=== PATIENT | female | born 1990 | race Caucasian/White ===

== ENCOUNTER 2017-01-01 05:41 | Inpatient (IN) | payer MEDICAID ==
[2017-01-01] VITALS (14 sets, daily range): BP systolic 100–120; BP diastolic 55–76; Ht 149.9 cm; Wt 77.3 kg
[~2017-01-01] VITALS: Ht 149.9 cm; Wt 77.3 kg
[2017-01-01] MEDS ORDERED: PRENAVITE1 TAB PO (06:11)
[2017-01-01 06:20] LABS: HEMATOCRIT 33.6 % (36.0-48.0); HEMOGLOBIN 11.6 g/dL (12-16); MCH 31.9 pg (26.0-34.0); MCHC 34.5 g/dL (31.0-37.0); MCV 92.3 fL (80.0-100.0); MEAN PLATELET VOLUME 9.9 fL (7.4-10.4); RBC 3.64 10x6/uL (4.00-5.40); WBC 8.6 10x3/uL (4.8-10.8)
[2017-01-01 06:36] LABS: UDS - AMPHET NEGATIVE QUAL (NEGATIVE); UDS - BARB NEGATIVE QUAL (NEGATIVE); UDS - BENZO NEGATIVE QUAL (NEGATIVE); UDS - COCAINE NEGATIVE QUAL (NEGATIVE); UDS - OPIATE NEGATIVE QUAL (NEGATIVE); UDS - PCP NEGATIVE QUAL (NEGATIVE); UDS - THC NEGATIVE QUAL (NEGATIVE)
[2017-01-01 06:46] LABS: APPEARANCE CLOUDY (CLEAR); BILIRUBIN NEGATIVE (NEGATIVE); COLOR YELLOW (YELLOW); GLUCOSE NEGATIVE (NEGATIVE); KETONE NEGATIVE (NEGATIVE); NITRITE NEGATIVE (NEGATIVE); PROTEIN 1+ mg/dL (NEGATIVE); UROBILINOGEN NORMAL (NORMAL); WHITE CELLS - URINE >50 /hpf (0-5)
[2017-01-01 06:47] LABS: EPITHELIAL CELLS OCC /hpf (0-5)
[2017-01-01 06:48] LABS: BACTERIA MANY /hpf (NONE SEEN); MUCUS <1+ /lpf (NONE SEEN); YEAST >1+ WITH HYPHAE /hpf (NONE SEEN)
--- NOTE | 2017-01-01 08:39 | NUR ---
BABY BORN AT 0833. TRANSFERRED TO NURSERY WITH NURSE.
--- NOTE | 2017-01-01 09:32 | NUR ---
HERNANDEZ SECURED TO LEFT THIGH IN RR
--- NOTE | 2017-01-01 09:45 | NUR ---
received pt to labor and delivery post repeat section with dr. castle. pt to room 1278. pt has low transverse incision, dermabond noted, c/d/i. abdomen palpates soft, fundus firm, u/1, small rubra lochia, no clots. ice pack placed over gown to incision. pt's iv to left hand infusing ns with 20 units pitocin, set on pump at 125 ml/hr, no redness or swelling noted to iv site. scd's are on pt, connected to pump. pt denies nausea or sob. pt requests ice chips, served. family called to room. sig other at bedside at this time. sr up x 2, call light and phone within reach.
--- NOTE | 2017-01-01 11:45 | NUR ---
fundus firm, u/1, small rubra lochia, no clots. pt able to fully move and feel both legs. incision remains c/d/i. ice pack remains over gown to incision. lantigua cath continues to drain light yellow urine. pt denies n/v or sob. pt denies other needs. pt repositioned to left tilt with pillows under back for support and comfort. pt is using incentive spirometer well without assistance. coughing and deep breathing exercises done per pt. sr up x 2, call light and phone within reach.
--- NOTE | 2017-01-01 12:58 | OP ---
PATIENT NAME: JOSE M UNDERWOOD MEDICAL RECORD: [id number] :91 LOCATION:[id number] ADMISSION DATE:01/01/17 SURGEON: CARRINGTON SWAIN MD DATE OF OPERATION: 01/01/2017 PREOPERATIVE DIAGNOSES: 1. at 39 weeks' gestation. 2. Prior section. 3. Unwanted fertility. POSTOPERATIVE DIAGNOSES: Mother delivered at 39 weeks and 5 days, repeat low transverse section and unwanted fertility. PROCEDURE: 1. Repeat . 2. tubal ligation using a [place] technique. SURGEON: Carrington Swain MD ANESTHESIOLOGIST: Jeferson Umana MD ANESTHETIC: General. FINDINGS: Unremarkable uterus, tubes and ovaries bilaterally. Viable male , weight 3934 grams, Apgars 7 and 9. SPECIMENS REMOVED: 1. Placenta. 2. Right and left tube. SPECIMEN DISPOSITIONS: 1. Placenta discarded. 2. Right and left tube sent in same container. ESTIMATED BLOOD LOSS: 750 cc. FLUIDS: 2200 lactated Ringer's. URINE OUTPUT: 500 cc of clear urine. COMPLICATIONS: None. DRAINS: Burch to gravity. INDICATIONS: The patient is a 26-year-old multiparous female at term with prior section times 2. The patient has unwanted fertility. She understands the risks and benefits of tubal ligation to include, but not limited to possible failure with increased chance of an ectopic gestation which could be life-threatening event if was to occur. DESCRIPTION OF PROCEDURE: After informed consent was assured, the patient was taken to the operating room where anesthetic was obtained. She was then placed in leftward lateral tilt after being laid back. The patient is now draped. Assessment of the anesthetic was found to be inadequate and the patient undergoes rapid sequence induction for a general anesthetic. Upon release from OPERATIVE REPORT [id number] JOSE M UNDERWOOD anesthesia, an incision was made, carried down to the underlying layer of the fascia, which is open and the opening extended laterally. The abdomen is entered using a Pelosi technique. Bladder blade was inserted. Low transverse hysterotomy was performed and the was delivered onto the abdomen atraumatically. Cord was double clamped and cut and passed to the attendant. The placenta was delivered via Crede maneuver. Uterus exteriorized, cleared of all clot and debris. A segment of cord was for attending nurse to obtain cord blood sample for typing. The hysterotomy was closed in a running locked fashion with chromic stitch. After this was performed, the pelvis was irrigated and irrigant removed. The left tube was elevated and a window developed in the antimesenteric side and 2 plain gut stitches were passed through this opening. These are tied on the proximal and distal end and the intervening segment of tube removed and the ostia cauterized. This was repeated on the contralateral side. Once adequate hemostasis is assured, the uterus is returned to the abdomen. Pelvis again is irrigated and irrigant removed. The hysterotomy was inspected, one small bleeding area is made hemostatic with [id number] stitch. The rectus bellies reapproximated and are inspected and found to be hemostatic. The fascia was closed with 1 looped PDS in a running fashion. After this was secured, plain gut stitch was used to reapproximate the fat layer and then the skin was reapproximated with 4-0 Monocryl on a PS2 needle. Dermabond was applied. Sponge, lap and needle counts correct times 2. The pelvis has been explored and no sponges were retained. TRANSINT:[id number] Voice Confirmation ID: [id number] DOCUMENT ID: [id number] CARRINGTON SWAIN MD at 1258 CC: [id number] DICTATION DATE: 01/01/17919 PEDIATRIC CNS: 01/01/17 1213 ADM IN [facility] [address] [place] [address]
--- NOTE | 2017-01-01 13:00 | NUR ---
to pt's room, fundus firm, u/1, small rubra lochia, no clots expelled. incision remains intact, clean and dry. abdomen continues to palpate soft. pt continues to deny n/v, sob. pt reports pain is "pretty well taken care of with the school lunch manager and toradol". pt asking when she can get up out of bed and start moving around. explained to pt that dr. castle has given the ok for pt to get up out of the bed, and to have her lantigua cath taken out as early as 6 hours post op. pt agrees to this plan of care, states "i really think i might want to get up as early as i can, i'll let you know". pericare given with warm wet washcloths, peripads changed. fresh ice pack placed over gown to incision. pt denies other needs at this time. sr up x 2, call light and phone within reach.
--- NOTE | 2017-01-01 16:00 | NUR ---
to pt's room, pt is sitting up in the bed, is currently . pt states "i think i want to get up a little later and get moving about". hoang, rn nursery nurse changing 's diaper. fundus firm, u/1, small rubra lochia, no clots. lantigua cath continues to drain light yellow urine. pt denies needs needs at this time. pt has eaten regular diet for lunch, and continues to deny nausea/vomiting, bowel sounds active x 4. sr up x2, call light and phone within reach.
--- NOTE | 2017-01-01 17:30 | NUR ---
pt calls out location and measurement technician light and requests to get up out of bed, and to move rooms, pt is requesting a bigger room. fundus firm, u/1, scant rubra lochia, no clots noted. lantigua cath removed with total of 1200 ml's light yellow urine out. iv saline locked, flushed with 10 ml's ns, no redness or swelling noted to iv site. incision remains c/d/i, abdomen remains soft. scd's removed for transport. pt assisted out of bed, pt requests to walk to next room. pt ambulatory, with me at her side, gait steady. pt denies dizziness, n/v, or sob. to #[id number], pt assisted to bed. srup x 2, call light and phone within reach. incentive spirometer on bedside table, with ice pack placed over gown to incision. pt's medication schedule reviewed with pt. pt states she would like to have the toradol only for now, but will let us know if she needs anything else, as any kind of pain pills usually causes her nose to itch. see emar for all meds adm by this rn. sr up x2, call light and phone within reach. pt denies other needs at this time.
--- NOTE | 2017-01-01 18:10 | NUR ---
pt up to br per self.
--- NOTE | 2017-01-01 18:15 | NUR ---
pt reports she voided large amount, but did not catch to measure. [place] hat placed in toilet for measuring next voids. pt agrees. pt back to bed, denies needs. srup x 2, call light and phone within reach.
--- NOTE | 2017-01-01 19:40 | NUR ---
RN TO PT BS FOR JAIME. PT RESTING IN BED IN SEMI-FOWLERS POSTIION, HOLDING . PT IN NO ACUTE DISTRESS. PT IS A 26YO G3 NOW P3 WITH REPEAT C/S AND BTL TODAY @ 0833 OF VIABLE MALE . INFANT @ 38.3 WKS GESTATION. AAOX3. HR REGULAR. LUNGS CTAB. ABDOMEN SOFT AND NON TENDER. BS ACTIVE TIMES 4. FUNDUS NOT PALPATED. LOWER ABDOMINAL INCISION NOTED, DERMABOND IN PLACE. INCISION WELL PROXIMATED WITH NO REDNESS OR DRAINAGE NOTED TO SITE. RODRIGUE PADS AND PANTIES IN PLACE. LOCHIA RUBRA SCANT. PT DENIES DIFFICULTY VOIDING. STATES SHE HAS PASSED GAS BUT HAS NOT HAD A BM SINCE C/S. NO SWELLING NOTED TO UPPER OR LOWER EXTREMITIES BILATERALLY. 18G SL IN PLACE TO LEFT HAND. FLUSHED WITH 5CC NS AT THIS TIME WITHOUT DIFFICULTY. NO REDNESS OR EDEMA NOTED TO SITE. PT TOLERATING REGULAR DIET WITHOUT DIFFICULTY. PT RATES PAIN AT 4/10 AT THIS TIME. PT RECEIVING SCHEDULED IV TORDAL Q6H. PERCOCET ORDERED. PT STATES SHE DOES NOT DESIRE TO RECEIVE PO PERCOCET UNLESS SHE HAS TO HAVE IT. STATES ANY PO PAIN MEDICATION CAUSES HER NOSE TO ITCH. PT INSTRUCTED TO NOTIFY RN IF PO PAIN MEDICATION IS DESIRED. POC DISCUSSED WITH PT AND QUESTIONS ANSWERED. FRESH WATER MUG PROVIDED AT THIS TIME. PT DENIES ANY FURTHER NEEDS. BED IN LOW POSITION, SIDE RAILS UP TIMES 2, CALL LIGHT AND PHONE IN REACH. MULTIPLE VISITORS REMAIN AT PT BS FOR SUPPORT AND ASSISTANCE. REMAINS AT PT BS FOR COUPLET CARE. WILL CONT TO MONITOR PT STATUS.
--- NOTE | 2017-01-01 21:12 | NUR ---
RN TO PT BS FOR ROUNDS. PT RESTING IN BED IN SEMI-FOWLERS POSITION ATTEMPTING TO BREASTFEED . PT REQUESTS BREAST PUMP TO ASSIST IN FEEDING . NURSERY NURSE NOTIFIED. PT DENIES ANY FURTHER NEEDS. BED IN LOW POSTION, SIDE RAILS UP TIMES 2, CALL LIGHT AND PHONE IN REACH. FAMILY TIMES 3 AT PT BS FOR SUPPORT AND ASSISTANCE. REMAINS AT PT BS FOR COUPLET CARE. WILL CONT TO MONITOR PT STATUS.
--- NOTE | 2017-01-01 21:40 | NUR ---
RN CALLED TO PT BS WITH C/O RED CAVANAUGH ON FACE. REDDENED AREA NOTED UNDER BOTH EYES AND TO THE LEFT OF MOUTH. INFORMED PT IT WAS PROBABLY A REACTION TO THE TAPE USED DURING GENERAL ANESHTESIA. PT STATES THE CAVANAUGH HAVE NOT BEEN THERE ALL DAY. INFORMED PT WOULD CONT TO MONITOR. LINENS PROVIDED TO PT SO FOR NIGHT. PT DENIES ANY FURTHER NEEDS. BED IN LOW POSITION, SIDE RAILS UP TIMES 2, CALL LIGHT AND PHONE IN REACH. SO REMAINS AT PT BS FOR SUPPORT AND ASSISTANCE. INFANT REMAINS AT PT BS FOR COUPLET CARE. WILL CONT TO MONITOR PT STATUS.
--- NOTE | 2017-01-01 22:48 | NUR ---
CALLED TO PT BS WITH C/O PAIN, RATES 08/14, REQUESTS MEDICATION. 1 TAB PERCOCET 5 PROVIDED TO PT AT THIS GARETT PER REQUEST. PT DENIES ANY FURTHER NEEDS. BED IN LOW POSITION, SIDE RAILS UP TIMES 2, CALL LIGHT AND PHONE IN REACH. SO REMAINS AT PT BS FOR SUPPORT AND ASSISTANCE. WILL CONT TO MONITOR PT STATUS.
--- NOTE | 2017-01-01 23:41 | NUR ---
RN TO PT BS TO PROVIDE WITH SCHEDULED 2345 DOSE OF TORDAL IVP. PT RESTING IN BED IN SEMI-FOWLERS POSITION, WITH EYES CLOSED, IN NO ACUTE DISTRESS. PT AWAKENS EASILY WHEN SPOKEN TO. 18G SL TO LEFT HAND FLUSHED WITH 5 CC NS WITHOUT DIFFICULTY, NO REDNESS OR EDEMA NOTED TO SITE. TORDAL 30MG PROVIDED TO PT IVP THEN FLUSHED WITH 5 CC NS WITHOUT DIFFICULTY. PT TOLERATED WELL. VS TAKEN AND WNL. PT DENIES ANY FURTHER NEEDS AT THIS TIME. BED IN LOW POSITION, SIDE RAILS UP TIMES 2, CALL LIGHT AND PHONE IN REACH. SO REMAINS AT PT BS FOR SUPPORT AND ASSISTANCE. WILL CONT TO MONITOR PT STATUS.
--- NOTE | 2017-01-02 01:52 | NUR ---
RN TO PT BS FOR ROUNDS. PT RESTING IN BED IN SEMI-FOWLERS POSITION, . PT IN NO ACUTE DISTRESS. PT DENIES ANY NEEDS AT THIS TIME. BED IN LOW POSITION, SIDE RAILS UP TIMES 2, CALL LIGHT AND PHONE IN REACH. SO REMAINS AT PT BS FOR SUPPORT AND ASSISTANCE. INFANT REMAINS AT PT BS FOR COUPLET CARE. WILL CONT TO MONITOR PT STATUS.
--- NOTE | 2017-01-02 03:29 | NUR ---
RN TO PT BS FOR ROUNDS. PT RESTING IN BED IN RIGHT LATERAL POSITION, WITH EYES CLOSED, IN NO ACUTE DISTRESS. RESPIRATIONS EVEN AND UNLABORED. BED IN LOW POSITION, SIDE RAILS UP TIMES 2, CALL LIGHT AND PHONE IN REACH. SO REMAINS AT PT BS FOR SUPPORT AND ASSISTANCE. WILL CONT TO MONITOR PT STATUS.
--- NOTE | 2017-01-02 04:52 | NUR ---
RN CALLED TO PT BS WITH C/O PAIN, RATES 08/14, REQUESTS MEDICATION. 1 TAB PERCOCET 5 PROVIDED AT THIS TIME WITH FRESH MUG OF WATER. PT DENIES ANY FURTHER NEEDS. BED IN LOW POSITION, SIDE RAILS UP TIMES 2, CALL LIGHT AND PHONE IN REACH. SO REMAINS AT PT BS FOR SUPPORT AND ASSITANCE. WILL CONT TO MONITOR PT STATUS.
[2017-01-02 05:22] LABS: BASOPHILS 0.1 % (0-2); EOSINOPHILS 0.9 % (0-7); HEMATOCRIT 28.7 % (36.0-48.0); HEMOGLOBIN 9.8 g/dL (12-16); IMMATURE GRANULOCYTES 0.2 % (0-5); LYMPHOCYTES 16.4 % (15-50); MCH 31.8 pg (26.0-34.0); MCHC 34.1 g/dL (31.0-37.0); MCV 93.2 fL (80.0-100.0); MEAN PLATELET VOLUME 9.9 fL (7.4-10.4); MONOCYTES 7.8 % (2-11); NEUTROPHILS 74.6 % (40-80); PLATELET COUNT 180 10x3/uL (130-400); RBC 3.08 10x6/uL (4.00-5.40); RDW 13.2 % (11.5-14.5); WBC 13.1 10x3/uL (4.8-10.8)
--- NOTE | 2017-01-02 05:57 | NUR ---
RN TO PT BS TO ADMINISTER 0545 DOSE OF SCHEDULED TORDAL 30MG. PT RESTING IN BED IN SEMI-FOWLERS POSITION, IN NO ACUTE DISTRESS. 18G SL TO LEFT HAND FLUSHED WITH 5 CC NS WITHOUT DIFFICULTY. NO REDNESS OR EDEMA NOTED TO SITE. TORDAL 30MG ADMINISTERED SLOW IVP THEN FLUSHED WITH 5 CC NS WITHOUT DIFFICULTY. PT DENIES ANY FURTHER NEEDS AT THIS TIME. BED IN LOW POSITION, SIDE RAILS UP TIMES 2, CALL LIGHT AND PHONE IN REACH. SO REMAINS AT PT BS FOR SUPPORT AND ASSISTANCE. WILL CONT TO MONITOR PT STATUS.
[2017-01-02 06:14] LABS: RAPID PLASMA REAGIN Non Reactive (Non Reactive)
--- NOTE | 2017-01-02 06:55 | NUR ---
RN TO PT'S ROOM FOR ROUNDS. PT AND SO ASLEEP IN BED HOLDING . DISCUSSED SAFETY HAZARDS WITH PARENTS. PT STATES THE WOULD NOT BREASTFEED AND THEY WOULD LIKE TO REST. SWADDLED AND TAKEN TO NURSERY FOR OBSERVATION AND BOTTLEFEED. REPORT GIVEN TO NURSERY GEOGRAPHICAL HISTORIAN. MOTHER DENIES ANY FURTHER NEEDS. BED IN LOW POSITION, SIDE RAILS UP TIMES 2, CALL LIGHT AND PHONE IN REACH. SO REMAINS AT PT BS FOR SUPPORT AND ASSISTANCE. WILL GIVE REPORT TO AM SHIFT.
[2017-01-02 08:00] VITALS: BP 108/60
--- NOTE | 2017-01-02 08:00 | NUR ---
PATIENT AWAKE AND ALERT LYING IN BED. RESPIRATIONS EVEN AND UNLABORED. LUNGS CTA. ABDOMINAL INCISION INTACT AND WITHOUT DRAINAGE. LOCHIA SMALL. NO S/S OF DISTRESS NOTED.
--- NOTE | 2017-01-02 09:25 | NUR ---
PATIENT CALLED OUT TO NURSES DESK WITH COMPLAINTS OF PAIN AND REQUESTING PAIN MEDICATION. PATIENT REPORTS PAIN LEVEL OF 6/10.
--- NOTE | 2017-01-02 09:33 | NUR ---
PERCOCET 5 1 TAB P.O GIVEN FOR COMPLAINTS OF INCISIONAL PAIN 6/10 PAIN SCALE.
--- NOTE | 2017-01-02 10:07 | NUR ---
PATIENT REPORTS PAIN DECREASED NOW TO 3/10. PATIENT STATED SHE IS GOING TO GET A SHOWER.
--- NOTE | 2017-01-02 11:14 | NUR ---
PATIENT SITTING UP ON COUCH IN ROOM WITH AT BREAST. INFATN SLEEPING. PATIENT HAD NO COMPLAINTS OF PAIN AT THIS TIME AND SHE HAS TAKEN HER SHOWER.
--- NOTE | 2017-01-02 11:45 | NUR ---
PATIENT STILL SITTING UP ON COUCH INFANT. NO COMPLAINTS OF PAIN NOTED.
--- NOTE | 2017-01-02 12:45 | NUR ---
PATIENT GIVEN SCHEDULED DOSE OF MOTRIN 800MG P.O FOR COMPLAINTS OF PAIN 5/10. PATIENT COMPLAINS OF INCISIONAL PAIN THAT IS WORSE WITH ACTIVITY.
--- NOTE | 2017-01-02 14:17 | NUR ---
PATIENT SITTING UP IN BED WITH INFANT SKIN TO SKIN. NO COMPLAINTS OF PAIN OR PROBLEMS NOTED.
--- NOTE | 2017-01-02 15:00 | NUR ---
PATIENT AWAKE AND ALERT AMBULATORY IN ROOM TO CHANGE BABY'S DIABPER. NO COMPLAINTS NOTED AT THIS TIME.
--- NOTE | 2017-01-02 16:10 | NUR ---
PATIENT CALLED OUT AND REPORTED PAIN A 7 AND REQUESTS PAIN MEDICATION.
--- NOTE | 2017-01-02 16:12 | NUR ---
PATIENT GIVEN PERCOCET 5/325MG 1 TAB P.O FOR COMPLAINTS OF INCISIONAL PAIN 08/14.
[2017-01-02 19:20] VITALS: BP 116/70
--- NOTE | 2017-01-02 19:20 | NUR ---
RN TO PT BS FOR JAIME. PT RESTING IN BED IN SEMI-FOWLERS POSITION, IN NO ACUTE DISTRESS. PT IS A 26YO G3 NOW P3 WITH REPEAT C/S AND BTL YESTERDAY @ 0833 OF VIABLE MALE . @ 38.3 WKS GESTATION. AAOX3. HR REGULAR. LUNGS CTAB. ABDOMEN SOFT AND NON TENDER. BS ACTIVE TIMES 4. FUNDUS NOT PALPATED. LOWER ABDOMINAL INCISION NOTED, DERMABOND IN PLACE. INCISION WELL PROXIMATED WITH NO REDNESS OR DRAINAGE NOTED TO SITE. RODRIGUE PAD AND PANTIES IN PLACE. LOCHIA RUBRA SCANT. PT DENIES DIFFICULTY VOIDING. STATES SHE HAS PASSED GAS BUT HAS NOT HAD A BM SINCE C/S. NO SWELLING NOTED TO UPPER OR LOWER EXTREMITIES BILATERALLY. 18G SL IN PLACE TO LEFT HAND, D/C'D AT THIS TIME, TIP INTACT. PRESSURE DRESSING PLACED TO SITE. PT TOLERATING REGULAR DIET WITHOUT DIFFICULTY. PT RATES PAIN 8/10 AT THIS TIME. REQUESTS MEDICATION 2 TABS PERCOET 5 PROVIDED. MEDICATION SCHEDULE REVIEWED WITH PT, QUESTIONS ANSWERED. POC DISCUSSED AND QUESTIONS ANSWERED. WATER MUG REFRESHED. PT DENIES ANY FURTHER NEEDS AT THIS TIME. BED IN LOW POSITION, SIDE RAILS UP TIMES 2, CALL LIGHT AND PHONE IN REACH. SO REMAINS AT PT BS FOR SUPPORT AND ASSISTANCE. REMAINS AT PT BS FOR COUPLET CARE. WILL CONT TO MONITOR PT STATUS.
--- NOTE | 2017-01-02 20:43 | NUR ---
RN TO PT BS FOR ROUNDS. PT SITTING ON SIDE OF BED DOING HOMEWORK. PT IN NO ACUTE DISTRESS. FRESH WATER PROVIDED IN MUG PER REQUEST AND PENCIL PROVIDED. PT DENIES ANY FURTHER NEEDS AT THIS TIME. BED IN LOW POSITION, SIDE RAILS UP TIMES 2, CALL LIGHT AND PHONE IN REACH. SO REMAINS AT PT BS FOR SUPPORT AND ASSISTANCE. INFANT REMAINS AT PT BS FOR COUPLET CARE. WILL CONT TO MONITOR PT STATUS.
--- NOTE | 2017-01-02 21:38 | NUR ---
RN TO PT BS TO PROVIDE PT WITH 2200 DOSE OF SCHEDULED MOTRIN. PT SITTING ON SIDE OF BED DOING HOMEWORK. 2200 DOSE OF MOTRIN 800MG PROVIDED TO PT AT THIS TIME. PT DENIES ANY FURTHER NEEDS. BED IN LOW POSITION, SIDE RAILS UP TIMES 2, CALL LIGHT AND PHONE IN REACH. SO REMAINS AT PT BS FOR SUPPORT AND ASSISTANCE. REMAINS AT PT BS FOR COUPLET CARE. WILL CONT TO MONITOR PT STATUS.
--- NOTE | 2017-01-02 23:50 | NUR ---
RN TO PT BS FOR ROUNDS. PT SITTING ON COUCH, TEXTING ON PHONE AND APPEARS TEARFUL. WHEN ASKED WHAT WAS WRONG PT AMBULATED TO BR AND SHUT THE DOOR. WILL CONT TO MONITOR PT STATUS.
--- NOTE | 2017-01-03 00:16 | NUR ---
RN TO PT BS FOR ROUNDS. PT SITTING IN BED, CONTINUES TO BE TEARFUL. PT DOES NOT DESIRE TO DISCUSS WHAT IS MAKING HER TEARFUL. TISSUES AND TP PROVIDED TO PT AT THIS TIME. BED IN LOW POSITION, SIDE RAILS UP TIMES 2, CALL LIGHT AND PHONE IN REACH. WILL CONT TO MONITOR PT STATUS.
--- NOTE | 2017-01-03 01:43 | NUR ---
RN CALLED TO PT BS WITH C/O PAIN, RATES 09/14, REQUESTS MEDICATION 2 TABS PERCOET 5 PROVIDED AT THIS TIME. PT DENIES ANY FURTHER NEEDS. BED IN LOW POSITION, SIDE RAILS UP TIMES 2, CALLLIGHT AND PHONE IN REACH. WILL CONT TO MONITOR PT STATUS.
--- NOTE | 2017-01-03 03:37 | NUR ---
RN TO PT BS FOR ROUNDS. PT RESTING ON COUCH IN FOWLERS POSITION, WITH EYES CLOSED, IN NO ACUTE DISTRESS. RESPIRATIONS EVEN AND UNLABORED. SO IN CHAIR IN ROOM, HOLDING AND BOTTLEFEEDING. SO DENIES ANY NEEDS AT THIS TIME. CALL LIGHT AND PHONE IN REACH. WILL CONT TO MONITOR PT STATUS.
--- NOTE | 2017-01-03 05:38 | NUR ---
RN TO PT BS TO PROVIDE PT WITH SCHEDULED 0600 DOSE OF MOTRIN 800MG. PT RESTING IN BED IN SEMI-FOWLERS POSITION, WITH EYES CLOSED, IN NO ACUTE DISTRESS. PT AWAKENS EASILY WHEN SPOKEN TO. MEDICATION PROVIDED. PT DENIES ANY NEEDS AT THIS TIME. BED IN LOW POSITION, SIDE RAILS UP TIMES 2, CALL LIGHT AND PHONE IN REACH. SO REMAINS AT PT BS FOR SUPPORT AND ASSISTANCE. WILL CONT TO MONITOR PT STATUS.
--- NOTE | 2017-01-03 07:45 | NUR ---
Pt calls out for pain medication.
--- NOTE | 2017-01-03 08:15 | NUR ---
This rn to room with requested pain med given as charted on emar. AM assessment completed as charted in flowsheet. Bikini incision clean and dry and pt denies any concerns about care after discharge. Towels placed in bathroom and pt will call if any assistance is needed. Infant in crib at bedside and sig other on couch.
--- NOTE | 2017-01-03 11:30 | NUR ---
Denies any needs at this time. Side rails up x 2 and call light in reach. Infant in crib at bedside.
[2017-01-03] MEDS ORDERED: IBUPROFEN800 MG PO (12:44)
[2017-01-03] MEDS ORDERED: PERCOCET 7.5/321 TAB PO (12:45)
--- NOTE | 2017-01-03 14:25 | NUR ---
Verbal and written discharge instructions given with written script provided for Motrin 800mg and Percocet 7.5mg. Pt states her understanding and denies any questions or concerns. She is finishing getting dresseed she will call for wheelchair. Ask that sig other go and pull care car to front door.
--- NOTE | 2017-01-03 14:30 | NUR ---
Pt calls to say she is now ready for wheelchair. Taken out to car with infant buckled into carrier, home by private vehicle with sig other.
== END 2017-01-03 14:30 | disposition home or self-care (01) | DRG 766 ==
LOC: D.LD 05:41
PROVIDERS: ADMIT Obstetrics & Gynecology
PROC: 0UB70ZZ Excision of Bilateral Fallopian Tubes, Open Approach (ICD-10-PCS; 2017-01-01)
PROC: 10D00Z1 Extraction of Products of Conception, Low, Open Approach (ICD-10-PCS; principal; 2017-01-01 07:30)
DX: O99.824 Streptococcus B carrier state complicating childbirth (principal); Z3A.39 39 weeks gestation of pregnancy; Z37.0 Single live birth; O34.219 Maternal care for unspecified type scar from previous cesarean delivery; Z30.2 Encounter for sterilization; O99.334 Smoking (tobacco) complicating childbirth; Z30.09 Encounter for other general counseling and advice on contraception